=== PATIENT | male | born 1965 | race Caucasian/White ===

== ENCOUNTER 2017-08-10 12:59 | Outpatient (CLI) | payer OTHER | END 2017-08-10 13:00 | disposition home or self-care (01) | LOC: DI 12:59 | DX: R60.9 Edema, unspecified (principal); I51.7 Cardiomegaly | CPT/HCPCS: 93306 ==

== ENCOUNTER 2020-09-12 09:10 | Outpatient (CLI) | payer OTHER ==
--- NOTE | 2020-09-12 10:06 | XRAY Report ---
PROCEDURE: Knee 3 View RT INDICATIONS: PAIN IN RT KNEE TECHNIQUE: 3 views of the knee(s) were acquired. COMPARISON: None. FINDINGS: Bones: No fractures or dislocations. No suspicious bony lesions. Soft tissues: No joint effusion. No suspicious soft tissue calcifications. IMPRESSION: No trauma found, source of pain is not seen. Reviewed by: Ricardo Gutiérrez MD on 09/12/2020 10:05 AM [facility] Approved by: Ricardo Gutiérrez MD on 09/12/2020 10:05 AM [facility] Station ID: [id number]
== END 2020-09-12 09:11 | disposition home or self-care (01) ==
LOC: DI.N 09:10
PROVIDERS: ATTEND Physician Assistant
DX: M25.561 Pain in right knee (principal)